=== PATIENT | female | born 1955 | race Caucasian/White ===

== ENCOUNTER 2018-02-27 18:42 | Emergency (ER) | payer BC ==
[2018-02-27] MEDS ORDERED: AMOXICILLIN/POTASSIUM CLAV 875MG/125MG TABLET PO ONE (19:04)
--- NOTE | 2018-02-27 19:04 | Emergency Department Record ---
History of Present Illness - General Chief complaint: Cold Stated complaint: SINUS CONGESTION, Time Seen by Provider: 02/27/18 18:58 Source: Patient Mode of Arrival: Ambulatory Limitations: No limitations - History of Present Illness Initial comments: The patient is here due to sinus congestion, green discharge and facial pain for 3 days. She denies any fever, GOMEZ, or cough but did recently have dental surgery so she is concerned about an infection. MD complaint: Other Onset/Timin -: Days(s) Improves with: None Worsens with: None Associated Symptoms: Rhinorrhea - Related Data Home Medications Medication Instructions Recorded Confirmed Last Taken Atorvastatin Calcium [Lipitor] 20 mg PO DAILY 02/27/18 02/27/18 02/27/18 Cholestyramine (with Sugar) 378 gm PO ASDIR 02/27/18 02/27/18 02/27/18 [Questran Powder] Oxybutynin Chloride [Ditropan Xl] 10 mg PO ASDIR 02/27/18 02/27/18 02/27/18 Oxycodone HCl [Roxicodone] 5 mg PO Q4H PRN 02/27/18 02/27/18 02/27/18 Previous Rx's Medication Instructions Recorded Amoxicillin/Potassium Clav 1 tab PO BID #14 tab 02/27/18 [Augmentin 875-125 Tablet] Fluticasone Propionate [Flonase] 2 spray EACH NARES DAILY #1 bottle 02/27/18 Allergies Allergy/AdvReac Type Severity Reaction Status Date / Time No Known Drug Allergies Allergy Verified 02/27/18 18:45 Travel Screening - Travel/Exposure Within Last 30 Days Have you traveled within the last 30 days?: No - Travel/Exposure Within Last Year Have you traveled outside the [place] in the last year?: No - Additonal Travel Details Have you been exposed to anyone with a communicable illness?: No - Travel Symptoms Symptom Screening: None Review of Systems Constitutional: Denies: Chills, Fever Eyes: Denies: Eye discharge ENT: Reports: Congestion, Dental pain Respiratory: Denies: Cough, Dyspnea Past Medical History - SOCIAL HISTORY Smoking Status: Former smoker Alcohol Use: Rare Drug Use: None - RESPIRATORY Hx Respiratory Disorders: No - CARDIOVASCULAR Hx Cardio Disorders: Yes Hx Pacemaker/Defib: Yes Comment:: WPW - NEURO Hx Neuro Disorders: Yes Hx Neuropathy: Yes - GI Hx GI Disorders: Yes Hx Hepatitis/Jaundice: Yes - Hx Genitourinary Disorders: Yes Hx Bladder Problem: Yes Comment:: cyst on left kidney - ENDOCRINE Hx Endocrine Disorders: Yes Hx Diabetes: Yes (NIDDM) - MUSCULOSKELETAL Hx Musculoskeletal Disorders: Yes Hx Arthritis: Yes - PSYCH Hx Psych Problems: No - HEMATOLOGY/ONCOLOGY Hx Hematology/Oncology Disorders: No Family Medical History Any Significant Family History?: Yes Hx Cancer: Mother *Cancer Comment: THYROID Hx Heart Disease: Mother *Heart Comment: CHF Hx HTN: Mother Physical Exam - General General Appearance: Alert, Oriented x3, Cooperative, No acute distress - Head Head exam: Atraumatic, Normocephalic, Normal inspection - Eye Eye exam: Normal appearance, PERRL, EOMI - ENT ENT exam: Normal exam, Mucous membranes moist, Normal external ear exam, Normal orophraynx, TM's normal bilaterally Nasal Exam: Sinus tenderness (mild bilateral maxillary areas. There is no swelling, erythema, or edema appreciated.). negative: Normal inspection, Discharge Throat exam: Normal inspection. negative: Tonsillar erythema, Tonsillar exudate - Neck Neck exam: Normal inspection, Full ROM. negative: Tenderness - Respiratory Respiratory exam: Normal lung sounds bilaterally. negative: Respiratory distress - Cardiovascular Cardiovascular Exam: Regular rate, Normal rhythm, Normal heart sounds - GI/Abdominal GI/Abdominal exam: Soft, Normal bowel sounds. negative: Tenderness Course Vital Signs 02/27/18 18:52 Temperature 98.4 F Pulse Rate 73 Respiratory 18 Rate Blood Pressure 108/70 Pulse Ox 95 - Reevaluation(s) Reevaluation #1: I did discuss the need to treat the patient for a bacterial sinus infection due to the recent surgery. She is to contact her surgeons tomorrow for further instructions. 02/27/18 19:07 Disposition Disposition: Discharge Clinical Impression: Sinusitis nasal Qualifiers: Sinusitis location: unspecified location Chronicity: acute Recurrence: not specified as recurrent Qualified Code(s): J01.90 - Acute sinusitis, unspecified Disposition: Home, Self-Care Condition: (2) Stable Instructions: Cold Symptoms (ED) Additional Instructions: Please take the Augmentin as directed and see your family doctor for recheck if not better in 3 days. Please call your surgeon tomorrow also to discuss the issues. Return to the ER for any problems. Prescriptions: Amoxicillin/Potassium Clav [Augmentin 875-125 Tablet] 1 tab PO BID #14 tab Fluticasone Propionate [Flonase] 2 spray EACH NARES DAILY #1 bottle Forms: Patient Portal Access Time of Disposition: 19:04 Quality - Quality Measures Quality Measures: N/A - Blood Pressure Screening View Details: Yes Does Patient Have Any of the Following: No Blood Pressure Classification: Normal BP Reading Systolic Measurement: 108 Diastolic Measurement: 70 Screening for High Blood Pressure: < Normal BP, F/U Not Required > [G8783]
== END 2018-02-27 19:13 | disposition home or self-care (01) ==
LOC: ER 18:42
DX: J01.90 Acute sinusitis, unspecified (principal); E11.9 Type 2 diabetes mellitus without complications; F17.210 Nicotine dependence, cigarettes, uncomplicated
CPT/HCPCS: 99282

== ENCOUNTER 2018-04-15 14:10 | Emergency (ER) | payer BC ==
[2018-04-15] MEDS ORDERED: 0.9 % SODIUM CHLORIDE 1,000 ML BAG IV ONE (14:34)
[2018-04-15] MEDS ORDERED: ONDANSETRON HCL IV 4 MG/2 ML VIAL IV ONE (14:34)
--- NOTE | 2018-04-15 14:34 | Emergency Department Record ---
History of Present Illness - General Chief Complaint: Back Pain/Injury Stated Complaint: NAUSEA,DIZZY,FAINT,kIDNEY PAIN Time Seen by Provider: 04/15/18 14:31 Source: Patient - History of Present Illness Initial Comments: The patient has been having foul smelling urine since last evening along with lower abdominal pain and left back pain. She has been drinking less than her usual. She has also had nausea without vomiting with it. She denies fevers, chills, cough, chest pain or shortness of breath. She has a history of bladder infections in the past. Onset/Timin -: Hour(s) Similar Symptoms Previously: No Place: Home Radiation: Other Severity scale (1-10): 7 Quality: Aching Consistency: Intermittent Improves With: None Worsens With: None Context: Unknown Associated Symptoms: Abdominal pain, Difficulty urinating, Loss of appetite, Nausea/vomiting, Other - Related Data Previous Rx's Medication Instructions Recorded Sulfamethoxazole/Trimethoprim 1 each PO BID #20 tablet 04/15/18 [Bactrim Ds Tablet] Allergies Allergy/AdvReac Type Severity Reaction Status Date / Time No Known Drug Allergies Allergy Verified 02/27/18 18:45 Travel Screening - Travel/Exposure Within Last 30 Days Have you traveled within the last 30 days?: No - Travel/Exposure Within Last Year Have you traveled outside the [place] in the last year?: No - Additonal Travel Details Have you been exposed to anyone with a communicable illness?: No - Travel Symptoms Symptom Screening: None Review of Systems Reviewed: No additional complaints except as noted below Constitutional: Reports: As per HPI. Denies: Chills, Fever, Malaise, Night sweats, Weakness, Weight change Eyes: Reports: As per HPI. Denies: Eye discharge, Eye pain, Photophobia, Vision change ENT: Reports: As per HPI. Denies: Congestion, Dental pain, Ear pain, Epistaxis , Hearing loss, Throat pain Respiratory: Reports: As per HPI. Denies: Cough, Dyspnea, Hemoptysis, Stridor, Wheezes Cardiovascular: Reports: As per HPI. Denies: Arrhythmia, Chest pain, Dyspnea on exertion, Edema, Murmurs, Orthopnea, Palpitations, Paroxysmal nocturnal dyspnea, Rheumatic Fever, Syncope Endocrine: Reports: As per HPI. Denies: Fatigue, Heat or cold intolerance, Polydipsia, Polyuria Gastrointestinal: Reports: As per HPI. Denies: Abdominal pain, Constipation, Diarrhea, Hematemesis, Hematochezia, Melena, Nausea, Vomiting Genitourinary: Reports: As per HPI. Denies: Abnormal menses, Discharge, Dyspareunia, Dysuria, Frequency, Hematuria, Incontinence, Retention, Urgency Musculoskeletal: Reports: As per HPI. Denies: Arthralgia, Back pain, Gout, Joint swelling, Myalgia, Neck pain Skin: Reports: As per HPI. Denies: Bruising, Change in color, Change in hair/ nails, Lesions, Pruritus, Rash Neurological: Reports: As per HPI. Denies: Abnormal gait, Confusion, Headache, Numbness, Paresthesias, Seizure, Tingling, Tremors, Vertigo, Weakness Psychiatric: Reports: As per HPI. Denies: Anxiety, Auditory hallucinations, Depression, Homicidal thoughts, Suicidal thoughts, Visual hallucinations Hematological/Lymphatic: Reports: As per HPI. Denies: Anemia, Blood Clots, Easy bleeding, Easy bruising, Swollen glands Past Medical History - SOCIAL HISTORY Smoking Status: Former smoker Alcohol Use: Rare Drug Use: None - RESPIRATORY Hx Respiratory Disorders: No - CARDIOVASCULAR Hx Cardio Disorders: Yes Hx Abnormal EKG: Yes Hx Pacemaker/Defib: Yes Comment:: WPW - NEURO Hx Neuro Disorders: Yes Hx Neuropathy: Yes - GI Hx GI Disorders: Yes Hx Hepatitis/Jaundice: Yes (autoimmune) - Hx Genitourinary Disorders: Yes Hx Bladder Problem: Yes Comment:: cyst on left kidney - ENDOCRINE Hx Endocrine Disorders: Yes Hx Diabetes: Yes (NIDDM) - MUSCULOSKELETAL Hx Musculoskeletal Disorders: Yes Hx Arthritis: Yes - PSYCH Hx Psych Problems: No - HEMATOLOGY/ONCOLOGY Hx Hematology/Oncology Disorders: No Family Medical History Any Significant Family History?: No Hx Cancer: Mother *Cancer Comment: THYROID Hx Heart Disease: Mother *Heart Comment: CHF Hx HTN: Mother Physical Exam - General General Appearance: Alert, Oriented x3, Cooperative, No acute distress - Head Head exam: Normal inspection - Eye Eye exam: Normal appearance, PERRL Pupils: Normal accommodation - ENT ENT exam: Normal exam, Mucous membranes moist, Normal external ear exam, Normal orophraynx, TM's normal bilaterally Ear exam: Normal external inspection. negative: External canal tenderness Nasal Exam: Normal inspection. negative: Discharge, Sinus tenderness Mouth exam: Normal external inspection, Tongue normal Teeth exam: Normal inspection. negative: Dental caries Throat exam: Normal inspection. negative: Tonsillar erythema, Tonsillar exudate - Neck Neck exam: Normal inspection, Full ROM. negative: Tenderness - Respiratory Respiratory exam: Normal lung sounds bilaterally. negative: Respiratory distress - Cardiovascular Cardiovascular Exam: Regular rate, Normal rhythm, Normal heart sounds - GI/Abdominal GI/Abdominal exam: Soft, Normal bowel sounds, Tenderness (mildly tender lowermost abdomen near bladder region) - Rectal Rectal exam: Deferred - exam: Deferred - Extremities Extremities exam: Normal inspection, Full ROM, Normal capillary refill. negative: Tenderness - Back Back exam: Reports: Normal inspection, Full ROM. Denies: CVA tenderness (R), CVA tenderness (L), Muscle spasm, Rash noted, Tenderness - Neurological Neurological exam: Alert, CN II-XII intact, Normal gait, Oriented X3, Reflexes normal. negative: Motor sensory deficit - Psychiatric Psychiatric exam: Normal affect, Normal mood - Skin Skin exam: Dry, Intact, Normal color, Warm Course Vital Signs 04/15/18 14:14 Temperature 98.4 F Pulse Rate 94 H Respiratory 16 Rate Blood Pressure 139/92 Pulse Ox 98 - Reevaluation(s) Reevaluation #1: Patient is feeling better after fluids and rest. She was given instructions for her UTI, all questions answered. Ready for DC. 04/15/18 16:02 Medical Decision Making - Management Options MDM Management: No Additional Work-up Planned - Data Complexity MDM Data: Labs Ordered and/or Reviewed (UA with 4+ bacteria, >50 WBC's, lg LE, LFT's elevated bili 1.1; AST51; ALT 71( all of which have been higher on prior studies).) - Lab Data Result diagrams: 04/15/18 14:25 04/15/18 14:25 Disposition Disposition: Discharge Clinical Impression: Elevated LFTs UTI (urinary tract infection) Qualifiers: Urinary tract infection type: acute cystitis Hematuria presence: with hematuria Qualified Code(s): N30.01 - Acute cystitis with hematuria Disposition: Home, Self-Care Condition: (1) Good Additional Instructions: Take your antibiotics Bactrim twice daily until gone. Repeat urine with Dr. Mandujano PCP after you have finished your antibiotics. Increase fluid intake. Your liver anzymes were elevated this visit. Have PCP follow them. Prescriptions: Sulfamethoxazole/Trimethoprim [Bactrim Ds Tablet] 1 each PO BID #20 tablet Forms: Patient Portal Access Quality - Quality Measures Quality Measures: N/A - Blood Pressure Screening Does Patient Have Any of the Following: No Blood Pressure Classification: Hypertensive Reading Systolic Measurement: 139 Diastolic Measurement: 92 Screening for High Blood Pressure: Patient Exclusion, Hx of HTN [G9744]
[2018-04-15 15:03] LABS: BASO % 0.3 % (0-6); EOS % 0.8 % (0-6); GRAN % 78.6 % (47-80); HEMATOCRIT 47.4 % (35.0-47.0); HEMOGLOBIN 15.9 gm/dl (11.6-16.0); LYMPH % 15.8 % (16-45); MEAN CELL VOLUME 92.2 fl (81-97); MEAN CORPUSCULAR HEMOGLOBIN 30.9 pg (27-33); MEAN CORPUSCULAR HGB CONC 33.5 g/dl (32-36); MONO % 4.5 % (0-9); PLATELET COUNT 173 K/uL (130-400); RED BLOOD COUNT 5.14 M/uL (3.80-5.40); RED CELL DISTRIBUTION WIDTH 12.6 % (11.5-14.5); WHITE BLOOD COUNT W/O DIFF 11.9 K/uL (4.2-12.2)
[2018-04-15 15:11] LABS: BLOOD UREA NITROGEN 16 mg/dL (8-23); CREATININE 0.7 mg/dL (0.5-0.9); EST GLOMERULAR FILTRATION RATE > 60 mL/min
[2018-04-15 15:12] LABS: TOTAL PROTEIN 8.6 g/dL (6.6-8.7)
[2018-04-15 15:14] LABS: GLUCOSE,RANDOM 128 mg/dL (74-109)
[2018-04-15 15:17] LABS: ALB/GLOB RATIO 1.3 (1.1-1.8); ALBUMIN 4.8 g/dL (4.0-5.0); ALKALINE PHOSPHATASE 90 U/L (35-104); ALT/SGPT 79 U/L (<33); AST/SGOT 51 U/L (10.0-35.0); LIPASE 31 U/L (13-60)
[2018-04-15 15:22] LABS: URINE APPEARANCE SL CLOUDY; URINE BILIRUBIN NEGATIVE (NEGATIVE); URINE BLOOD SMALL (NEGATIVE); URINE COLOR YELLOW; URINE GLUCOSE (UA) NEGATIVE (NEGATIVE); URINE KETONE TRACE (NEGATIVE); URINE LEUKOCYTE ESTERASE LARGE (NEGATIVE); URINE NITRITE POSITIVE (NEGATIVE); URINE UROBILINOGEN 0.2 E.U./dL (0.20 - 1.00)
[2018-04-15 15:30] LABS: URINE BACTERIA 4+; URINE EPITHELIAL CELLS 0 - 2 (FEW); URINE WBC >50 (0-2/hpf)
[2018-04-15] MEDS ORDERED: CEFTRIAXONE SODIUM 1 GM in 0.9 % SODIUM CHLORIDE 100ML 100 ML IVPB ONE (15:44)
== END 2018-04-15 16:22 | disposition home or self-care (01) ==
LOC: ER 14:10
DX: N30.01 Acute cystitis with hematuria (principal); I45.6 Pre-excitation syndrome; Z95.0 Presence of cardiac pacemaker; E11.9 Type 2 diabetes mellitus without complications; Z79.84 Long term (current) use of oral hypoglycemic drugs; Z87.891 Personal history of nicotine dependence
CPT/HCPCS: 99284 ×2; 96365; 96375; 83690; 85025; 80053; 81001; J2405; J7030

== ENCOUNTER 2018-11-08 23:00 | Inpatient (IN) | payer BC ==
[2018-11-08] MEDS ORDERED: ACETAMINOPHEN 500 MG TABLET PO ONE (23:23)
--- NOTE | 2018-11-08 23:28 | Emergency Department Record ---
History of Present Illness - General Stated Complaint: URINARY ISSUES- FEVER Time Seen by Provider: 11/08/18 23:04 Source: Patient Mode of Arrival: Ambulatory Limitations: No limitations - History of Present Illness Initial Comments: 63 yo female presents to ED for evaluation of fever, flank pain, and dysuria symptoms that began last night. Patient is post-op from pacemaker 8 days ago at [facility] with Dr. Marcano, denies cough or erythema/drainage from the wound site. Patient does report mild suprapubic abdominal pain symptoms, denies nausea/ vomiting symptoms. MD Complaint: Malaise Onset/Timin -: Days(s) Maximum Temperature: 102 F Temperature Source: Oral Context: Recent procedure Associated Symptoms: Chills, Dysuria - Related Data Previous Rx's Medication Instructions Recorded Sulfamethoxazole/Trimethoprim 1 each PO BID #20 tablet 04/15/18 [Bactrim Ds Tablet] Allergies Allergy/AdvReac Type Severity Reaction Status Date / Time No Known Drug Allergies Allergy Verified 02/27/18 18:45 Review of Systems Constitutional: Reports: Chills, Fever. Denies: Malaise, Night sweats Eyes: Denies: Eye discharge, Eye pain ENT: Denies: Congestion, Ear pain, Epistaxis Respiratory: Denies: Cough, Dyspnea Cardiovascular: Denies: Chest pain, Dyspnea on exertion Endocrine: Denies: Fatigue Gastrointestinal: Reports: Abdominal pain, Nausea. Denies: Vomiting Genitourinary: Reports: Dysuria. Denies: Incontinence, Retention Musculoskeletal: Reports: Back pain. Denies: Arthralgia, Gout, Joint swelling Skin: Denies: Bruising, Change in color Neurological: Denies: Abnormal gait, Confusion, Headache, Seizure Psychiatric: Denies: Anxiety Hematological/Lymphatic: Denies: Anemia, Blood Clots Past Medical History - SOCIAL HISTORY Smoking Status: Former smoker Drug Use: None - RESPIRATORY Hx Respiratory Disorders: No - CARDIOVASCULAR Hx Cardio Disorders: Yes Hx Abnormal EKG: Yes Hx Pacemaker/Defib: Yes Comment:: WPW - NEURO Hx Neuro Disorders: Yes Hx Neuropathy: Yes - GI Hx GI Disorders: Yes Hx Hepatitis/Jaundice: Yes (autoimmune) - Hx Genitourinary Disorders: Yes Hx Bladder Problem: Yes Comment:: cyst on left kidney - ENDOCRINE Hx Endocrine Disorders: Yes Hx Diabetes: Yes (NIDDM) - MUSCULOSKELETAL Hx Musculoskeletal Disorders: Yes Hx Arthritis: Yes - PSYCH Hx Psych Problems: No - HEMATOLOGY/ONCOLOGY Hx Hematology/Oncology Disorders: No Family Medical History Hx Cancer: Mother *Cancer Comment: THYROID Hx Heart Disease: Mother *Heart Comment: CHF Hx HTN: Mother Physical Exam - General General Appearance: Alert, Oriented x3, Cooperative, Mild distress Limitations: No limitations - Head Head exam: Atraumatic, Normocephalic, Normal inspection Head exam detail: negative: Abrasion, Contusion, Barcenas's sign, General tenderness, Hematoma, Laceration - Eye Eye exam: Normal appearance. negative: Conjunctival injection, Periorbital swelling, Periorbital tenderness, Scleral icterus - ENT Ear exam: negative: Auricular hematoma, Auricular trauma Nasal Exam: negative: Active bleeding, Discharge, Dried blood, Foreign body Mouth exam: negative: Drooling, Laceration, Muffled voice, Tongue elevation - Neck Neck exam: Normal inspection. negative: Meningismus, Tenderness - Respiratory Respiratory exam: Normal lung sounds bilaterally, Other (No erythema/draiange from the left upper chest wound, mild ecchysmosis present c/w recent pacemaker placement.). negative: Rales, Respiratory distress, Rhonchi, Stridor - Cardiovascular Cardiovascular Exam: Regular rate, Normal rhythm, Normal heart sounds - GI/Abdominal GI/Abdominal exam: Soft, Tenderness (Mild TTP supra-pubic region, no rebound, guarding, or peritoneal signs on examination). negative: Rebound, Rigid - Rectal Rectal exam: Deferred - exam: Deferred - Extremities Extremities exam: Normal inspection. negative: Pedal edema, Tenderness - Back Back exam: Denies: CVA tenderness (R), CVA tenderness (L) - Neurological Neurological exam: Alert, Normal gait, Oriented X3 - Psychiatric Psychiatric exam: Normal affect, Normal mood - Skin Skin exam: Normal color. negative: Abrasion Type of lesion: negative: abrasion Course - Reevaluation(s) Reevaluation #1: 11/08/18 23:52 Laboratory studies reviewed: WBC 9.1 with 81% Neutrophils CO2 16 AG 17 BUN 24/Creatinine 1.0, GFR 59 Lactic Acid 2.4 Reevaluation #2: 11/09/18 00:07 CXR: Pacemaker No acute infiltrate Urine pending at this time. Reevaluation #3: 11/09/18 00:45 UA obtained: 3-6 RBCs 16-20 WBCs 0-2 Epis 1+ Bacteria Patient was updated on all results, 2nd Liter NS bolus initiated. Rocephin ordered to infuse as well. Will admit for further evaluation, IV antibiotics, IVFs, and lactic acid trending. Patient agrees with the plan of care as discussed. Medical Decision Making - Lab Data Result diagrams: 11/08/18 23:20 11/08/18 23:20 Disposition Disposition: Admit Clinical Impression: Pyelonephritis, Postsurgical cardiac pacemaker in situ Sepsis Qualifiers: Sepsis type: sepsis due to unspecified organism Qualified Code(s): A41.9 - Sepsis, unspecified organism Disposition: Still a Patient at [facility] Decision to Admit: Admit from ER Decision to Admit Date: 11/09/18 Decision to Admit Time: 00:48 Condition: (2) Stable Time of Disposition: 00:48 Quality - Quality Measures Quality Measures: N/A - Blood Pressure Screening Does Patient Have Any of the Following: No Blood Pressure Classification: Pre-Hypertensive BP Reading Systolic Measurement: 129 Diastolic Measurement: 75 Screening for High Blood Pressure: < Pre-Hypertensive BP, F/U Documented > [ G8950] Pre-Hypertensive Follow-up Interventions: Referral to alternative/primary care provider.
[2018-11-08 23:31] LABS: HEMATOCRIT 40.2 % (35.0-47.0); HEMOGLOBIN 13.6 gm/dl (11.6-16.0); MEAN CELL VOLUME 91.6 fl (81-97); MEAN CORPUSCULAR HGB CONC 33.8 g/dl (32-36); MEAN PLATELET VOLUME 11.9 fl (7.4-10.4); PLATELET COUNT 107 K/uL (130-400); RED BLOOD COUNT 4.39 M/uL (3.80-5.40); WHITE BLOOD COUNT W/O DIFF 9.1 K/uL (4.2-12.2)
[2018-11-08 23:43] LABS: BILIRUBIN,TOTAL 0.9 mg/dL (0.2-1.0)
[2018-11-08 23:44] LABS: TOTAL PROTEIN 7.4 g/dL (6.6-8.7)
[2018-11-08] MEDS: 0.9 % SODIUM CHLORIDE 1000ML 1,000 ML IV SCH (23:45)
[2018-11-08 23:49] LABS: ALB/GLOB RATIO 1.2 (1.1-1.8)
[2018-11-09 00:37] LABS: URINE APPEARANCE SL CLOUDY; URINE BILIRUBIN NEGATIVE (NEGATIVE); URINE BLOOD SMALL (NEGATIVE); URINE COLOR YELLOW; URINE GLUCOSE (UA) NEGATIVE (NEGATIVE); URINE KETONE NEGATIVE (NEGATIVE); URINE LEUKOCYTE ESTERASE MODERATE (NEGATIVE); URINE NITRITE NEGATIVE (NEGATIVE); URINE PROTEIN TRACE (NEGATIVE); URINE UROBILINOGEN 0.2 E.U./dL (0.20 - 1.00)
[2018-11-09] MEDS ORDERED: CEFTRIAXONE 1GM/50ML BAG 1 GM/50 ML BAG IVPB ONE (00:38)
[2018-11-09 00:41] LABS: URINE BACTERIA 1+; URINE EPITHELIAL CELLS 0 - 2 (FEW); URINE WBC 16 - 20 (0-2/hpf)
[2018-11-09] MEDS: 0.9 % SODIUM CHLORIDE 1000ML 1,000 ML IV SCH (00:44)
[2018-11-09] MEDS ORDERED: 0.9 % SODIUM CHLORIDE 1000ML 1,000 ML IV SCH (00:45)
[2018-11-09] MEDS ORDERED: LEVOFLOXACIN 250MG IVPB 250 MG/50 ML BAG IVPB ONE (00:54)
[2018-11-09] MEDS ORDERED: LEVOFLOXACIN 250MG IVPB 250 MG/50 ML BAG IVPB SCH (02:00)
[2018-11-09] MEDS ORDERED: CEFTRIAXONE 1GM/50ML BAG 1 GM/50 ML BAG IVPB SCH (02:00)
[2018-11-09] MEDS: 0.9 % SODIUM CHLORIDE 1000ML 1,000 ML IV PRN ×3 (02:11→18:46)
[2018-11-09 07:20] LABS: BLOOD UREA NITROGEN 21 mg/dL (8-23); CREATININE 0.9 mg/dL (0.5-0.9); EST GLOMERULAR FILTRATION RATE > 60 mL/min; GLUCOSE,RANDOM 132 mg/dL (74-109)
--- NOTE | 2018-11-09 09:25 | RADIOLOGY REPORT ---
EXAM: CHEST, TWO VIEWS HISTORY: FEVER, RECENT PACEMAKER INSERTION. TECHNIQUE: Two views of the chest were obtained. Comparison: None. FINDINGS: The cardiac silhouette is within normal size limits. Implanted left sided cardiac device is present. The pulmonary vasculature is not significantly dilated. No focal pulmonary consolidation. No pleural effusion or pneumothorax. IMPRESSION: NO ACUTE LUNG FINDINGS. JOB NUMBER: [id number] MTDD
[2018-11-09] MEDS: ACETAMINOPHEN 500 MG TABLET PO PRN ×2 (09:50→20:01)
[2018-11-09] MEDS ORDERED: FLUTICASONE PROPIONATE 50MCG NASAL 16 GM BTL PRN (10:28)
[2018-11-09] MEDS: GABAPENTIN 300 MG CAPSULE PO SCH ×3 (10:58→21:47)
[2018-11-09] MEDS: METFORMIN 500 MG TABLET PO SCH (10:58)
[2018-11-09] MEDS: DOCUSATE SODIUM 100 MG CAPSULE PO SCH ×2 (10:59→21:46)
[2018-11-09] MEDS: CITALOPRAM 20 MG TABLET PO SCH (10:59)
[2018-11-09] MEDS: CARVEDILOL 3.125 MG TABLET PO SCH ×2 (10:59→21:48)
[2018-11-09] MEDS: RAMIPRIL 2.5 MG CAPSULE PO SCH (10:59)
[2018-11-09] MEDS: OXYBUTYNIN CHLORIDE 5MG TABLET PO SCH ×3 (10:59→21:47)
[2018-11-09] MEDS: MELOXICAM 7.5 MG TABLET PO SCH (10:59)
--- NOTE | 2018-11-09 11:28 | History & Physical ---
History of Present Illness - Date of Service Date of Service for History & Physical: 11/11/18 - History of Present Illness Admitting Diagnosis: Pyelpnephritis. Sepsis. Post-op pacemaker History of Present Illness: 63yo F c/o 1+ week of foul smelling urine, 3-4 days of lower abd and lower back pain. Pt reports freq UTI but usually has burning with urination but that did not happen this time. Pt recently had 3rd PPM placed by 8 days ago by [facility]. Service confirms that pt did NOT have benoit placed for procedure. PMG HTN, heart block (WPW), former smoker, DM, and hyperlipidemia. 11/08/18 Pt 102F, 104, 129/75, RR 24, 97%RA WBC 9.1, Hgb 13.6, Hct 40.2, Plt 107 Na 136, K 3.9, Anion gap 13, BUN 21, Cr 0.9, GFR >60, glucose 132 lactic acid 2.4, repeat 1.3 after 2L. UA positive mod leuk CXR no acute process Given 2 L NS bolus and levaquin 250mg IVPB, and [place]pe[place] 1gm Admit for urosepsis 11/09/18 Pt resting comfortably in bed, no acute distress. Reports freq urination with less abd pain but still no burning. Pt VSS, a&ox4, moving all extremities, warm and dry. Lungs CTA, BS x4, lower abd TTP. Heart sound RR, pacemacker incision left upper chest HEEL BUFFER. Incision is well approximated, no erythema or warmth noted. No drainage noted. Pt continues to lave no overhead left arm movement. POC repeat labs, continue fluids, IV abx and diet as tolerated. PCP [facility] Travel Screening - Travel/Exposure Within Last 30 Days Have you traveled within the last 30 days?: No - Travel/Exposure Within Last Year Have you traveled outside the [place] in the last year?: No - Additonal Travel Details Have you been exposed to anyone with a communicable illness?: No - Travel Symptoms Symptom Screening: Fever (Subjective), Chills Review of Systems Constitutional: Reports: Chills, Fever. Denies: Malaise, Night sweats Eyes: Denies: Eye discharge, Eye pain ENT: Denies: Congestion, Ear pain, Epistaxis Respiratory: Denies: Cough, Dyspnea Cardiovascular: Denies: Chest pain, Dyspnea on exertion Endocrine: Denies: Fatigue Gastrointestinal: Reports: Abdominal pain, Nausea. Denies: Vomiting Genitourinary: Reports: Dysuria. Denies: Incontinence, Retention Musculoskeletal: Reports: Back pain. Denies: Arthralgia, Gout, Joint swelling Skin: Denies: Bruising, Change in color Neurological: Denies: Abnormal gait, Confusion, Headache, Seizure Psychiatric: Denies: Anxiety Hematological/Lymphatic: Denies: Anemia, Blood Clots Past Medical History - SOCIAL HISTORY Smoking Status: Former smoker Alcohol Use: Rare Drug Use: None - RESPIRATORY Hx Respiratory Disorders: No - CARDIOVASCULAR Hx Cardio Disorders: Yes Hx Abnormal EKG: Yes Hx Pacemaker/Defib: Yes Comment:: WPW - NEURO Hx Neuro Disorders: Yes Hx Neuropathy: Yes - GI Hx GI Disorders: Yes Hx Hepatitis/Jaundice: Yes (autoimmune) - Hx Genitourinary Disorders: Yes Hx Bladder Problem: Yes Comment:: cyst on left kidney - ENDOCRINE Hx Endocrine Disorders: Yes Hx Diabetes: Yes (NIDDM) - MUSCULOSKELETAL Hx Musculoskeletal Disorders: Yes Hx Arthritis: Yes - PSYCH Hx Psych Problems: No - HEMATOLOGY/ONCOLOGY Hx Hematology/Oncology Disorders: No Family Medical History Any Significant Family History?: Yes Hx Cancer: Mother *Cancer Comment: THYROID Hx Heart Disease: Mother *Heart Comment: CHF Hx HTN: Mother H&P Meds/Allergies - Allergies Allergies: Allergies Allergy/AdvReac Type Severity Reaction Status Date / Time No Known Drug Allergies Allergy Verified 02/27/18 18:45 - Home Medications Home Medications Medication Instructions Recorded Confirmed Last Taken Aspirin [Aspir-Low] 1 tab PO DAILY 11/09/18 11/09/18 11/09/18 Carvedilol [Coreg] 6.25 mg PO BID 11/09/18 11/09/18 11/09/18 Citalopram Hydrobromide 20 mg PO DAILY 11/09/18 11/09/18 11/09/18 [Citalopram HBr] Docusate Sodium [Dok] 100 mg PO DAILY 11/09/18 11/09/18 11/09/18 Fluticasone Furoate [Arnuity 50 mcg IH ASDIR PRN 11/09/18 11/09/18 Unknown Ellipta] Gabapentin 300 mg PO TID 11/09/18 11/09/18 11/09/18 Metformin HCl [Metformin HCl ER] 500 mg PO DAILY 11/09/18 11/09/18 11/09/18 Omeprazole 20 mg PO DAILY 11/09/18 11/09/18 11/09/18 - Active Medications Active Medications: Current Medications Acetaminophen (Tylenol 500mg Tab) 1,000 mg PO Q6H PRN PRN Reason: PAIN - MILD(1-4)/FEVER Last Admin: 11/09/18 09:50 Dose: 1,000 mg Aspirin (Ecotrin (Ec)) 81 mg PO QHS [facility] Atorvastatin Calcium (Lipitor) 20 mg PO QHS [facility] Carvedilol (Coreg) 6.25 mg PO BID [facility] Last Admin: 11/09/18 10:59 Dose: 6.25 mg Cholestyramine Resin (Prevalite) 1 pkt PO BIDWM [facility] Citalopram Hydrobromide (Celexa) 20 mg PO DAILY [facility] Last Admin: 11/09/18 10:59 Dose: 20 mg Docusate Sodium (Colace) 100 mg PO BID [facility] Last Admin: 11/09/18 10:59 Dose: 100 mg Fluticasone Propionate (Flonase) 1 spray NA BID PRN PRN Reason: ALLERGIES Gabapentin (Neurontin) 300 mg PO TID [facility] Last Admin: 11/09/18 10:58 Dose: 300 mg Sodium Chloride () 1,000 mls @ 125 mls/hr IV .Q8H PRN PRN Reason: LARGE VOLUME IV Last Admin: 11/09/18 10:02 Dose: 125 mls/hr Levofloxacin (Levaquin 250mg Ivpb) 250 mg in 50 mls @ 50 mls/hr IVPB Q24H [facility] Stop: 11/15/18 02:01 CEFTRIAXONE 1GM/50ML BAG (Ceftriaxone 1 Gm-D5w Bag) 1 gm in 50 mls @ 100 mls/ hr IVPB Q12H [facility] Meloxicam (Mobic) 15 mg PO DAILY [facility] Last Admin: 11/09/18 10:59 Dose: 15 mg Metformin HCl (Glucophage Ir) 500 mg PO DAILY [facility] Last Admin: 11/09/18 10:58 Dose: 500 mg Oxybutynin Chloride (Ditropan) 5 mg PO TID [facility] Last Admin: 11/09/18 10:59 Dose: 5 mg Ramipril (Altace) 5 mg PO DAILY [facility] Last Admin: 11/09/18 10:59 Dose: 5 mg Physical Exam - Vital Signs Vital Signs: Vital Signs - Last 24 Hrs Temp Pulse Pulse Resp BP BP BP 11/09/18 08:00 98.1 F 82 16 113/58 11/09/18 04:00 97.9 F 83 16 104/52 11/09/18 02:45 98 H 16 11/09/18 02:00 98.1 F 98 H 16 90/56 11/09/18 01:57 91 H 91/61 11/09/18 01:30 92 H 94/62 11/09/18 01:15 93 H 98/63 11/09/18 01:07 97 H 102/64 11/09/18 01:00 99.1 F 96 H 79/54 11/09/18 00:30 99.1 F 96 H 16 92/64 11/08/18 23:24 102.0 F H 104 H 24 129/75 Pulse Ox 11/09/18 08:00 97 11/09/18 04:00 97 11/09/18 02:45 11/09/18 02:00 95 11/09/18 01:57 11/09/18 01:30 11/09/18 01:15 11/09/18 01:07 93 L 11/09/18 01:00 11/09/18 00:30 92 L 11/08/18 23:24 97 - General General Appearance: Alert, Oriented x3, Cooperative, No acute distress Limitations: No limitations - Head Head exam: Atraumatic, Normocephalic, Normal inspection Head exam detail: negative: Abrasion, Contusion, Barcenas's sign, General tenderness, Hematoma, Laceration - Eye Eye exam: Normal appearance. negative: Conjunctival injection, Periorbital swelling, Periorbital tenderness, Scleral icterus - ENT Ear exam: negative: Auricular hematoma, Auricular trauma Nasal Exam: negative: Active bleeding, Discharge, Dried blood, Foreign body Mouth exam: negative: Drooling, Laceration, Muffled voice, Tongue elevation - Neck Neck exam: Normal inspection. negative: Meningismus, Tenderness - Respiratory Respiratory exam: Normal lung sounds bilaterally. negative: Rales, Respiratory distress, Rhonchi, Stridor - Cardiovascular Cardiovascular Exam: Regular rate, Normal rhythm, Normal heart sounds Peripheral Pulses: 2+: Radial (R), Radial (L), Dorsalis Pedis (R), Dorsalis Pedis (L) - GI/Abdominal GI/Abdominal exam: Soft, Tenderness (Mild TTP supra-pubic region, no rebound, guarding, or peritoneal signs on examination). negative: Rebound, Rigid - Rectal Rectal exam: Deferred - exam: Deferred - Extremities Extremities exam: Normal inspection. negative: Pedal edema, Tenderness - Back Back exam: Denies: CVA tenderness (R), CVA tenderness (L) - Neurological Neurological exam: Alert, Normal gait, Oriented X3 - Psychiatric Psychiatric exam: Normal affect, Normal mood - Skin Skin exam: Normal color. negative: Abrasion Type of lesion: negative: abrasion Results - Labs Result Diagrams: 11/11/18 06:14 11/11/18 06:14 Labs Last 24 Hours: Laboratory Results - last 24 hr 11/08/18 11/08/18 11/08/18 23:20 23:20 23:22 WBC 9.1 RBC 4.39 Hgb 13.6 Hct 40.2 MCV 91.6 MCH 31.0 MCHC 33.8 RDW 13.0 Plt Count 107 L MPV 11.9 H Neutrophils % 81.0 H Band Neutrophils % 1.0 Eosinophils % Not Reportable Basophils % Not Reportable Lymphocytes 12.0 L Monocytes 6.0 Basophils 0.0 Eosinophil Count 0.0 Sodium 134 L Potassium 4.1 Chloride 101 Carbon Dioxide 16.0 L Anion Gap 17.0 H BUN 24 H Creatinine 1.0 H Estimated GFR 59 Random Glucose 144 H Lactic Acid Calcium 9.5 Total Bilirubin 0.90 AST 28 ALT 35 H Alkaline Phosphatase 87 Total Protein 7.4 Albumin 4.0 Globulin 3.4 Albumin/Globulin Ratio 1.2 Urine Color Cancelled Urine Appearance Cancelled Urine pH Cancelled Ur Specific [place] Cancelled Urine Protein Cancelled Urine Glucose (UA) Cancelled Urine Clinitest Cancelled Urine Ketones Cancelled Urine Blood Cancelled Urine Nitrite Cancelled Urine Bilirubin Cancelled Urine Ictotest Cancelled Prot Sulfosalicylic Acd Cancelled Urine Urobilinogen Cancelled Ur Leukocyte Esterase Cancelled Urine RBC Urine WBC Ur Epithelial Cells Urine Bacteria 11/08/18 11/09/18 11/09/18 23:45 00:37 02:28 WBC RBC Hgb Hct MCV MCH MCHC RDW Plt Count MPV Neutrophils % Band Neutrophils % Eosinophils % Basophils % Lymphocytes Monocytes Basophils Eosinophil Count Sodium Potassium Chloride Carbon Dioxide Anion Gap BUN Creatinine Estimated GFR Random Glucose Lactic Acid 2.4 H 1.3 Calcium Total Bilirubin AST ALT Alkaline Phosphatase Total Protein Albumin Globulin Albumin/Globulin Ratio Urine Color Yellow Urine Appearance Sl cloudy Urine pH 6.0 Ur Specific [place] 1.010 Urine Protein Trace H Urine Glucose (UA) Negative Urine Clinitest Urine Ketones Negative Urine Blood Small H Urine Nitrite Negative Urine Bilirubin Negative Urine Ictotest Prot Sulfosalicylic Acd Urine Urobilinogen 0.2 Ur Leukocyte Esterase Moderate H Urine RBC 3 - 6 Urine WBC 16 - 20 Ur Epithelial Cells 0 - 2 Urine Bacteria 1+ 11/09/18 06:40 WBC RBC Hgb Hct MCV MCH MCHC RDW Plt Count MPV Neutrophils % Band Neutrophils % Eosinophils % Basophils % Lymphocytes Monocytes Basophils Eosinophil Count Sodium 136 Potassium 3.9 Chloride 106 Carbon Dioxide 17.0 L Anion Gap 13.0 BUN 21 Creatinine 0.9 Estimated GFR > 60 Random Glucose 132 H Lactic Acid Calcium 8.3 L Total Bilirubin AST ALT Alkaline Phosphatase Total Protein Albumin Globulin Albumin/Globulin Ratio Urine Color Urine Appearance Urine pH Ur Specific [place] Urine Protein Urine Glucose (UA) Urine Clinitest Urine Ketones Urine Blood Urine Nitrite Urine Bilirubin Urine Ictotest Prot Sulfosalicylic Acd Urine Urobilinogen Ur Leukocyte Esterase Urine RBC Urine WBC Ur Epithelial Cells Urine Bacteria - Imaging and Cardiology Chest x-ray Status: Report reviewed VTE H&P Assessment - Risk for VTE Risk for VTE: Yes Risk Level: Moderate Risk Assessment Date: 11/11/18 Risk Assessment Time: 09:59 VTE Orders Placed or Will Be Placed: Yes Plan - Inpatient Certification Inpatient Certification: Admit to inpatient care: Based on my medical assessment, after consideration of patient's risk factors (age, co-morbidities and patient presenting symptoms and acuity), I expect that this patient will remain in the hospital greater than or equal to two midnights and that the services needed warrant inpatient care because: Patient Risk Factors: hypotension, renal insufficiency, electrolytes imbalance Estimated length of stay: The patient may reasonably be expected to be discharged or transferred to a hospital within 96 hours after admission to [facility]. Services needed: IV hydration, IV antibiotics, electrolyte mgt, repeat labs, vital sign monitoring Post hospital care (if known): I certify that my determination is in accordance with my understanding of Medicare requirements for reasonable and necessary inpatient services. 11/11/18 09:59 - Detailed Diagnosis and Plan (1) Sepsis Current Visit: Yes Status: Acute Qualifiers: Sepsis type: sepsis due to unspecified organism Qualified Code(s): A41.9 - Sepsis, unspecified organism Base Code: A41.9 - SEPSIS, UNSPECIFIED ORGANISM Comment: 11/09/18 -lactic acid 2.4 but repeat 1.3 after 2 L NS -pt does not req supplemental O2, VSS, a&ox4 -CBC and RFT stable -continue IV ABX and IVF, repeat labs in the am (2) Pyelonephritis Current Visit: Yes Status: Acute Base Code: N12 - TUBULO-INTERSTITIAL NEPHRITIS, NOT SPCF ACUTE OR CHRONIC Comment: 11/09/18 -IV ABX -BUN 21->13 -Cr 0.9->0.7 repeat labs in AM -pt making urine, tolerating PO intake with no difficulty (3) Postsurgical cardiac pacemaker in situ Current Visit: Yes Status: Acute Base Code: Z95.0 - PRESENCE OF CARDIAC PACEMAKER Comment: 11/09/18 -surgical site has no s/s infectin -[facility] contacted with pt current condition -wound HEEL BUFFER, no drainage noted, incision well approximated (4) Full code status Current Visit: Yes Status: Acute Base Code: Z78.9 - OTHER SPECIFIED HEALTH STATUS Comment: 11/09/18 -full code
[2018-11-09] MEDS: CEFTRIAXONE 1GM/50ML BAG 1 GM/50 ML BAG IVPB SCH ×2 (12:52→23:47)
[2018-11-09] MEDS: CHOLESTYRAMINE/ASPARTANE PKT PO SCH (16:43)
[2018-11-09] MEDS: ATORVASTATIN 20 MG TABLET PO SCH (21:47)
[2018-11-09] MEDS: ASPIRIN 81 MG TABEC PO SCH (21:47)
[2018-11-10] MEDS ORDERED: LEVOFLOXACIN 250MG IVPB 250 MG/50 ML BAG IVPB SCH (02:00)
[2018-11-10] MEDS: ACETAMINOPHEN 500 MG TABLET PO PRN ×3 (03:05→17:44)
[2018-11-10] MEDS: 0.9 % SODIUM CHLORIDE 1000ML 1,000 ML IV PRN ×3 (03:58→23:20)
[2018-11-10 07:13] LABS: BASO % 0.2 % (0-6); EOS % 1.9 % (0-6); GRAN % 69.1 % (47-80); HEMATOCRIT 33.5 % (35.0-47.0); HEMOGLOBIN 11.2 gm/dl (11.6-16.0); LYMPH % 15.6 % (16-45); MEAN CELL VOLUME 93.8 fl (81-97); MEAN CORPUSCULAR HGB CONC 33.4 g/dl (32-36); MEAN PLATELET VOLUME 11.9 fl (7.4-10.4); MONO % 13.2 % (0-9); PLATELET COUNT 93 K/uL (130-400); RED BLOOD COUNT 3.57 M/uL (3.80-5.40); RED CELL DISTRIBUTION WIDTH 13.4 % (11.5-14.5); WHITE BLOOD COUNT W/O DIFF 8.6 K/uL (4.2-12.2)
[2018-11-10 07:19] LABS: MEAN CORPUSCULAR HEMOGLOBIN 31.3 pg (27-33)
[2018-11-10 07:23] LABS: BLOOD UREA NITROGEN 13 mg/dL (8-23); CREATININE 0.7 mg/dL (0.5-0.9); EST GLOMERULAR FILTRATION RATE > 60 mL/min
[2018-11-10 07:26] LABS: GLUCOSE,RANDOM 113 mg/dL (74-109)
[2018-11-10] MEDS: CHOLESTYRAMINE/ASPARTANE PKT PO SCH ×2 (09:32→17:44)
[2018-11-10] MEDS: GABAPENTIN 300 MG CAPSULE PO SCH ×3 (10:08→21:53)
[2018-11-10] MEDS: CITALOPRAM 20 MG TABLET PO SCH (10:09)
[2018-11-10] MEDS: DOCUSATE SODIUM 100 MG CAPSULE PO SCH ×2 (10:09→21:53)
[2018-11-10] MEDS: OXYBUTYNIN CHLORIDE 5MG TABLET PO SCH ×3 (10:09→21:53)
[2018-11-10] MEDS: MELOXICAM 7.5 MG TABLET PO SCH (10:09)
[2018-11-10] MEDS: METFORMIN 500 MG TABLET PO SCH (10:09)
[2018-11-10] MEDS: RAMIPRIL 2.5 MG CAPSULE PO SCH (10:09)
[2018-11-10] MEDS: CARVEDILOL 3.125 MG TABLET PO SCH ×2 (10:10→21:54)
[2018-11-10] MEDS: LEVOFLOXACIN/D5W 750 MG/150 ML BAG IVPB SCH (10:16)
[2018-11-10] MEDS: CEFTRIAXONE 1GM/50ML BAG 1 GM/50 ML BAG IVPB SCH ×2 (13:08→23:23)
[2018-11-10] MEDS: POLYETHYLENE GLY 17 GM PACKET PO SCH (14:44)
[2018-11-10] MEDS ORDERED: CALCIUM CARBONATE 500 MG TAB.CHEW PO PRN (21:47)
[2018-11-10] MEDS: ATORVASTATIN 20 MG TABLET PO SCH (21:53)
[2018-11-10] MEDS: ASPIRIN 81 MG TABEC PO SCH (21:53)
[2018-11-11] MEDS: ACETAMINOPHEN 500 MG TABLET PO PRN (05:23)
[2018-11-11 06:51] LABS: HEMATOCRIT 33.6 % (35.0-47.0); MEAN CELL VOLUME 93.6 fl (81-97); MEAN CORPUSCULAR HEMOGLOBIN 30.6 pg (27-33); MEAN CORPUSCULAR HGB CONC 32.7 g/dl (32-36); MEAN PLATELET VOLUME 12.1 fl (7.4-10.4); PLATELET COUNT 103 K/uL (130-400); RED BLOOD COUNT 3.59 M/uL (3.80-5.40); RED CELL DISTRIBUTION WIDTH 13.7 % (11.5-14.5); WHITE BLOOD COUNT W/O DIFF 7.6 K/uL (4.2-12.2)
[2018-11-11 07:01] LABS: BLOOD UREA NITROGEN 10 mg/dL (8-23); CREATININE 0.7 mg/dL (0.5-0.9); EST GLOMERULAR FILTRATION RATE > 60 mL/min; GLUCOSE,RANDOM 99 mg/dL (74-109)
[2018-11-11 07:22] LABS: PLATELET ESTIMATE NORMAL (NORMAL)
[2018-11-11] MEDS: 0.9 % SODIUM CHLORIDE 1000ML 1,000 ML IV PRN (08:16)
[2018-11-11] MEDS: CHOLESTYRAMINE/ASPARTANE PKT PO SCH ×2 (09:01→16:44)
[2018-11-11] MEDS ORDERED: POTASSIUM CHL 20MEQ IN 1L NS 20 MEQ/1,000 ML BAG IV ONE (09:20)
--- NOTE | 2018-11-11 10:11 | Physician Progress Note ---
Subjective - Date Date of Physician Progress Note: 11/10/18 - Subjective Subjective Comment: Pt appears well, at bedside, both updated with POC and new labs results. Pt and have "googled" sepsis and have questions and concerns about the severity of her current condition based on preliminary results of gram neg rods in BC x2 and elevated procalcitonin 6.68. POC for fluids, increased levaquin dosing to 750mg qdand continue Rocephin 1gm q12. Questions answered, pt and deny any further questions at this time. Objective - Vital Signs Vital Signs: Vital Signs - Last 24 Hrs Temp Pulse Pulse Resp BP Pulse Ox 11/11/18 09:00 98.1 F 84 18 128/75 93 L 11/11/18 05:00 100.4 F H 89 22 148/89 95 11/11/18 00:00 99.7 F H 87 20 113/59 95 11/10/18 21:00 99.8 F H 89 20 126/73 95 11/10/18 20:45 80 18 11/10/18 17:15 100.0 F H 80 18 149/91 96 11/10/18 13:44 72 16 96 11/10/18 12:00 73 16 85/44 95 - General General Appearance: Alert, Oriented x3, Cooperative, No acute distress Limitations: No limitations - Head Head exam: Atraumatic, Normocephalic, Normal inspection Head exam detail: negative: Abrasion, Contusion, Barcenas's sign, General tenderness, Hematoma, Laceration - Eye Eye exam: Normal appearance. negative: Conjunctival injection, Periorbital swelling, Periorbital tenderness, Scleral icterus - ENT Ear exam: negative: Auricular hematoma, Auricular trauma Nasal Exam: negative: Active bleeding, Discharge, Dried blood, Foreign body Mouth exam: negative: Drooling, Laceration, Muffled voice, Tongue elevation - Neck Neck exam: Normal inspection. negative: Meningismus, Tenderness - Respiratory Respiratory exam: Normal lung sounds bilaterally. negative: Rales, Respiratory distress, Rhonchi, Stridor - Cardiovascular Cardiovascular Exam: Regular rate, Normal rhythm, Normal heart sounds, Other ( incision left chest, no drainage, minimal bruising, no redness or warmth ) Peripheral Pulses: 2+: Radial (R), Radial (L), Dorsalis Pedis (R), Dorsalis Pedis (L) - GI/Abdominal GI/Abdominal exam: Soft, Tenderness (Mild TTP supra-pubic region, no rebound, guarding, or peritoneal signs on examination). negative: Rebound, Rigid - Rectal Rectal exam: Deferred - exam: Deferred - Extremities Extremities exam: Normal inspection. negative: Pedal edema, Tenderness - Back Back exam: Denies: CVA tenderness (R), CVA tenderness (L) - Neurological Neurological exam: Alert, Normal gait, Oriented X3 - Psychiatric Psychiatric exam: Normal affect, Normal mood - Skin Skin exam: Normal color. negative: Abrasion Type of lesion: negative: abrasion Assessment and Plan - Assessment and Plan (1) Sepsis Current Visit: Yes Status: Acute Qualifiers: Sepsis type: sepsis due to unspecified organism Qualified Code(s): A41.9 - Sepsis, unspecified organism Base Code: A41.9 - SEPSIS, UNSPECIFIED ORGANISM Comment: 11/09/18 -lactic acid 2.4 but repeat 1.3 after 2 L NS -pt does not req supplemental O2, VSS, a&ox4 -CBC and RFT stable -continue IV ABX and IVF, repeat labs in the am 11/10/18 -Procalcitonin 6.68 and preliminary BC results gram neg rods, levaquin increased to 750mg IVPB, continue Rocephin 1gm q12 -Continue IVF -pt and updated on POC to stay a few days r/t sepsis severity -pt appears well, skin PWD, no distress, eating with out difficulty, denies N/V/ D or abd pain (2) Pyelonephritis Current Visit: Yes Status: Acute Base Code: N12 - TUBULO-INTERSTITIAL NEPHRITIS, NOT SPCF ACUTE OR CHRONIC Comment: 11/09/18 -IV ABX -BUN 21->13 -Cr 0.9->0.7 repeat labs in AM -pt making urine, tolerating PO intake with no difficulty 11/10/18 -Levaquin increased to 750mg IVPB qd, continue rocephin 1gm q12 -continue IVF -pt has adequate intake and output, ambulates to restroom with no diffuculty (3) Postsurgical cardiac pacemaker in situ Current Visit: Yes Status: Acute Base Code: Z95.0 - PRESENCE OF CARDIAC PACEMAKER Comment: 11/09/18 -surgical site has no s/s infectin -[facility] contacted with pt current condition -wound MEDICAL FRONT DESK COORDINATOR, no drainage noted, incision well approximated 11/10/18 -surgical site remains same (4) Full code status Current Visit: Yes Status: Acute Base Code: Z78.9 - OTHER SPECIFIED HEALTH STATUS Comment: 11/10/18 -full code Results - Labs Result Diagrams: 11/11/18 06:14 11/11/18 06:14 Labs Last 24 Hours: Laboratory Results - last 24 hr 11/11/18 11/11/18 06:14 06:14 WBC 7.6 RBC 3.59 L Hgb 11.0 L Hct 33.6 L MCV 93.6 MCH 30.6 MCHC 32.7 RDW 13.7 Plt Count 103 L MPV 12.1 H Neutrophils % 57.0 Band Neutrophils % 5.0 Eosinophils % Not Reportable Basophils % Not Reportable Lymphocytes 21.0 Monocytes 12.0 H Platelet Estimate Normal RBC Morphology Normal Eosinophil Count 5.0 Sodium 140 Potassium 3.7 Chloride 108 H Carbon Dioxide 18.0 L Anion Gap 14.0 BUN 10 Creatinine 0.7 Estimated GFR > 60 Random Glucose 99 Calcium 9.1 DVT/PE Assessment - Risk for VTE Risk for VTE: No Risk Level: Moderate Risk Assessment Date: 11/11/18 Risk Assessment Time: 09:59 VTE Orders Placed or Will Be Placed: Yes - Active Medicaitons Current Medications: Current Medications Acetaminophen (Tylenol 500mg Tab) 1,000 mg PO Q6H PRN PRN Reason: PAIN - MILD(1-4)/FEVER Last Admin: 11/11/18 05:23 Dose: 1,000 mg Aspirin (Ecotrin (Ec)) 81 mg PO QHS [facility] Last Admin: 11/10/18 21:53 Dose: 81 mg Atorvastatin Calcium (Lipitor) 20 mg PO QHS [facility] Last Admin: 11/10/18 21:53 Dose: 20 mg Calcium Carbonate/Glycine (Tums) 500 mg PO Q4H PRN PRN Reason: heartburn Last Admin: 11/10/18 21:53 Dose: 500 mg Carvedilol (Coreg) 6.25 mg PO BID [facility] Last Admin: 11/10/18 21:54 Dose: Not Given Cholestyramine Resin (Prevalite) 1 pkt PO BIDWM [facility] Last Admin: 11/11/18 09:01 Dose: 1 pkt Citalopram Hydrobromide (Celexa) 20 mg PO DAILY [facility] Last Admin: 11/10/18 10:09 Dose: 20 mg Docusate Sodium (Colace) 100 mg PO BID [facility] Last Admin: 11/10/18 21:53 Dose: 100 mg Enoxaparin Sodium (Lovenox) 40 mg SQ DAILY [facility] Fluticasone Propionate (Flonase) 1 spray NA BID PRN PRN Reason: ALLERGIES Gabapentin (Neurontin) 300 mg PO TID [facility] Last Admin: 11/10/18 21:53 Dose: 300 mg CEFTRIAXONE 1GM/50ML BAG (Ceftriaxone 1 Gm-D5w Bag) 1 gm in 50 mls @ 100 mls/ hr IVPB Q12H [facility] Last Infusion: 11/11/18 00:04 Dose: Infused Levofloxacin/Dextrose (Levaquin 750mg Ivpb) 750 mg in 150 mls @ 125 mls/hr IVPB Q24H [facility] Stop: 11/15/18 10:01 Last Infusion: 11/10/18 12:21 Dose: Infused Potassium Chloride/Sodium Chloride ( Potassium Chl 20meq/) 20 meq in 1,000 mls @ 100 mls/hr IV NOW ONE Stop: 11/11/18 19:19 Meloxicam (Mobic) 15 mg PO DAILY [facility] Last Admin: 11/10/18 10:09 Dose: 15 mg Metformin HCl (Glucophage Ir) 500 mg PO DAILY [facility] Last Admin: 11/10/18 10:09 Dose: 500 mg Oxybutynin Chloride (Ditropan) 5 mg PO TID [facility] Last Admin: 11/10/18 21:53 Dose: 5 mg Polyethylene Glycol (Miralax) 17 gm PO DAILY [facility] Last Admin: 11/10/18 14:44 Dose: 17 gm Ramipril (Altace) 5 mg PO DAILY [facility] Last Admin: 11/10/18 10:09 Dose: 5 mg AMI Plan - Labs Result Diagrams: 11/11/18 06:14 11/11/18 06:14
--- NOTE | 2018-11-11 10:22 | Physician Progress Note ---
Subjective - Date Date of Physician Progress Note: 11/11/18 - Subjective Subjective Comment: 11/10/18 Pt appears well, at bedside, both updated with POC and new labs results. Pt and have "googled" sepsis and have questions and concerns about the severity of her current condition based on preliminary results of gram neg rods in BC x2 and elevated procalcitonin 6.68. POC for fluids, increased levaquin dosing to 750mg qdand continue Rocephin 1gm q12. Questions answered, pt and deny any further questions at this time. 11/11/18 Pt reports normal appetite, making urine and denies any issues. POC d/c tomorrow with 1 week ABC PCP Objective - Vital Signs Vital Signs: Vital Signs - Last 24 Hrs Temp Pulse Pulse Resp BP Pulse Ox 11/11/18 09:00 98.1 F 84 18 128/75 93 L 11/11/18 05:00 100.4 F H 89 22 148/89 95 11/11/18 00:00 99.7 F H 87 20 113/59 95 11/10/18 21:00 99.8 F H 89 20 126/73 95 11/10/18 20:45 80 18 11/10/18 17:15 100.0 F H 80 18 149/91 96 11/10/18 13:44 72 16 96 11/10/18 12:00 73 16 85/44 95 - General General Appearance: Alert, Oriented x3, Cooperative, No acute distress Limitations: No limitations - Head Head exam: Atraumatic, Normocephalic, Normal inspection Head exam detail: negative: Abrasion, Contusion, Barcenas's sign, General tenderness, Hematoma, Laceration - Eye Eye exam: Normal appearance. negative: Conjunctival injection, Periorbital swelling, Periorbital tenderness, Scleral icterus - ENT Ear exam: negative: Auricular hematoma, Auricular trauma Nasal Exam: negative: Active bleeding, Discharge, Dried blood, Foreign body Mouth exam: negative: Drooling, Laceration, Muffled voice, Tongue elevation - Neck Neck exam: Normal inspection. negative: Meningismus, Tenderness - Respiratory Respiratory exam: Normal lung sounds bilaterally. negative: Rales, Respiratory distress, Rhonchi, Stridor - Cardiovascular Cardiovascular Exam: Regular rate, Normal rhythm, Normal heart sounds, Other ( incision left chest, no drainage, minimal bruising, no redness or warmth ) Peripheral Pulses: 2+: Radial (R), Radial (L), Dorsalis Pedis (R), Dorsalis Pedis (L) - GI/Abdominal GI/Abdominal exam: Soft, Tenderness (Mild TTP supra-pubic region, no rebound, guarding, or peritoneal signs on examination). negative: Rebound, Rigid - Rectal Rectal exam: Deferred - exam: Deferred - Extremities Extremities exam: Normal inspection. negative: Pedal edema, Tenderness - Back Back exam: Denies: CVA tenderness (R), CVA tenderness (L) - Neurological Neurological exam: Alert, Normal gait, Oriented X3 - Psychiatric Psychiatric exam: Normal affect, Normal mood - Skin Skin exam: Normal color. negative: Abrasion Type of lesion: negative: abrasion Assessment and Plan - Assessment and Plan (1) Sepsis Current Visit: Yes Status: Acute Qualifiers: Sepsis type: Escherichia coli Qualified Code(s): A41.51 - Sepsis due to Escherichia coli [E. coli] Base Code: A41.9 - SEPSIS, UNSPECIFIED ORGANISM Comment: 11/09/18 -lactic acid 2.4 but repeat 1.3 after 2 L NS -pt does not req supplemental O2, VSS, a&ox4 -CBC and RFT stable -continue IV ABX and IVF, repeat labs in the am 11/10/18 -Procalcitonin 6.68 and preliminary BC results gram neg rods, levaquin increased to 750mg IVPB, continue Rocephin 1gm q12 -Continue IVF -pt and updated on POC to stay a few days r/t sepsis severity -pt appears well, skin PWD, no distress, eating with out difficulty, denies N/V/ D or abd pain 11/11/18 -changed IVF to NS 20mEq K, labs reviewed, K 3.7 -Cont IVF 1 more day -pt reports appetite has returned to normal, no complaints at this time -making urine with no issues, ambulating with no issues -Plan for D/C tomorrow with Levaquin 750mg PO and Keflex 500mg TID x 7 days (2) Pyelonephritis Current Visit: Yes Status: Acute Base Code: N12 - TUBULO-INTERSTITIAL NEPHRITIS, NOT SPCF ACUTE OR CHRONIC Comment: 11/09/18 -IV ABX -BUN 21->13 -Cr 0.9->0.7 repeat labs in AM -pt making urine, tolerating PO intake with no difficulty 11/10/18 -Levaquin increased to 750mg IVPB qd, continue rocephin 1gm q12 -continue IVF -pt has adequate intake and output, ambulates to restroom with no diffuculty 11/11/18 -RFTs wnl, CBC wnl -continue to encourage Po intake and continue IVF 1 more day -repeat labs in AM but plan on D/C tomorrow -Confirmed POC d/c ABX regimen with Pat Pharmacist and Dr Fry based on preliminary BC results and labs (3) Postsurgical cardiac pacemaker in situ Current Visit: Yes Status: Acute Base Code: Z95.0 - PRESENCE OF CARDIAC PACEMAKER Comment: 11/09/18 -surgical site has no s/s infectin -[facility] contacted with pt current condition -wound CYNTHIA, no drainage noted, incision well approximated 11/10/18 -surgical site remains same 11/11/18 -surgical site remains same (4) Full code status Current Visit: Yes Status: Acute Base Code: Z78.9 - OTHER SPECIFIED HEALTH STATUS Comment: 11/11/18 -full code (5) DVT prophylaxis Current Visit: Yes Status: Acute Base Code: [id number] - Comment: 11/11/18 -lovenox 40mg SQ QD Results - Labs Result Diagrams: 11/11/18 06:14 11/11/18 06:14 Labs Last 24 Hours: Laboratory Results - last 24 hr 11/11/18 11/11/18 06:14 06:14 WBC 7.6 RBC 3.59 L Hgb 11.0 L Hct 33.6 L MCV 93.6 MCH 30.6 MCHC 32.7 RDW 13.7 Plt Count 103 L MPV 12.1 H Neutrophils % 57.0 Band Neutrophils % 5.0 Eosinophils % Not Reportable Basophils % Not Reportable Lymphocytes 21.0 Monocytes 12.0 H Platelet Estimate Normal RBC Morphology Normal Eosinophil Count 5.0 Sodium 140 Potassium 3.7 Chloride 108 H Carbon Dioxide 18.0 L Anion Gap 14.0 BUN 10 Creatinine 0.7 Estimated GFR > 60 Random Glucose 99 Calcium 9.1 DVT/PE Assessment - Risk for VTE Risk for VTE: No Risk Level: Moderate Risk Assessment Date: 11/11/18 Risk Assessment Time: 09:59 VTE Orders Placed or Will Be Placed: Yes - Active Medicaitons Current Medications: Current Medications Acetaminophen (Tylenol 500mg Tab) 1,000 mg PO Q6H PRN PRN Reason: PAIN - MILD(1-4)/FEVER Last Admin: 11/11/18 05:23 Dose: 1,000 mg Aspirin (Ecotrin (Ec)) 81 mg PO QHS [facility] Last Admin: 11/10/18 21:53 Dose: 81 mg Atorvastatin Calcium (Lipitor) 20 mg PO QHS [facility] Last Admin: 11/10/18 21:53 Dose: 20 mg Calcium Carbonate/Glycine (Tums) 500 mg PO Q4H PRN PRN Reason: heartburn Last Admin: 11/10/18 21:53 Dose: 500 mg Carvedilol (Coreg) 6.25 mg PO BID [facility] Last Admin: 11/10/18 21:54 Dose: Not Given Cholestyramine Resin (Prevalite) 1 pkt PO BIDWM [facility] Last Admin: 11/11/18 09:01 Dose: 1 pkt Citalopram Hydrobromide (Celexa) 20 mg PO DAILY [facility] Last Admin: 11/10/18 10:09 Dose: 20 mg Docusate Sodium (Colace) 100 mg PO BID [facility] Last Admin: 11/10/18 21:53 Dose: 100 mg Enoxaparin Sodium (Lovenox) 40 mg SQ DAILY [facility] Fluticasone Propionate (Flonase) 1 spray NA BID PRN PRN Reason: ALLERGIES Gabapentin (Neurontin) 300 mg PO TID [facility] Last Admin: 11/10/18 21:53 Dose: 300 mg CEFTRIAXONE 1GM/50ML BAG (Ceftriaxone 1 Gm-D5w Bag) 1 gm in 50 mls @ 100 mls/ hr IVPB Q12H [facility] Last Infusion: 11/11/18 00:04 Dose: Infused Levofloxacin/Dextrose (Levaquin 750mg Ivpb) 750 mg in 150 mls @ 125 mls/hr IVPB Q24H [facility] Stop: 11/15/18 10:01 Last Infusion: 11/10/18 12:21 Dose: Infused Potassium Chloride/Sodium Chloride ( Potassium Chl 20meq/) 20 meq in 1,000 mls @ 100 mls/hr IV NOW ONE Stop: 11/11/18 19:19 Meloxicam (Mobic) 15 mg PO DAILY [facility] Last Admin: 11/10/18 10:09 Dose: 15 mg Metformin HCl (Glucophage Ir) 500 mg PO DAILY [facility] Last Admin: 11/10/18 10:09 Dose: 500 mg Oxybutynin Chloride (Ditropan) 5 mg PO TID [facility] Last Admin: 11/10/18 21:53 Dose: 5 mg Polyethylene Glycol (Miralax) 17 gm PO DAILY [facility] Last Admin: 11/10/18 14:44 Dose: 17 gm Ramipril (Altace) 5 mg PO DAILY [facility] Last Admin: 11/10/18 10:09 Dose: 5 mg AMI Plan - Labs Result Diagrams: 11/11/18 06:14 11/11/18 06:14
[2018-11-11] MEDS: GABAPENTIN 300 MG CAPSULE PO SCH ×3 (10:35→21:29)
[2018-11-11] MEDS: CITALOPRAM 20 MG TABLET PO SCH (10:35)
[2018-11-11] MEDS: METFORMIN 500 MG TABLET PO SCH (10:35)
[2018-11-11] MEDS: CARVEDILOL 3.125 MG TABLET PO SCH ×2 (10:35→21:30)
[2018-11-11] MEDS: DOCUSATE SODIUM 100 MG CAPSULE PO SCH ×2 (10:36→21:30)
[2018-11-11] MEDS: OXYBUTYNIN CHLORIDE 5MG TABLET PO SCH ×3 (10:36→21:30)
[2018-11-11] MEDS: ENOXAPARIN 40 MG/0.4 ML SYR SQ SCH (10:36)
[2018-11-11] MEDS: MELOXICAM 7.5 MG TABLET PO SCH (10:36)
[2018-11-11] MEDS: RAMIPRIL 2.5 MG CAPSULE PO SCH (10:36)
[2018-11-11] MEDS: LEVOFLOXACIN/D5W 750 MG/150 ML BAG IVPB SCH (10:37)
[2018-11-11] MEDS: POLYETHYLENE GLY 17 GM PACKET PO SCH (10:38)
[2018-11-11] MEDS: CEFTRIAXONE 1GM/50ML BAG 1 GM/50 ML BAG IVPB SCH ×2 (12:47→23:32)
[2018-11-11] MEDS: ATORVASTATIN 20 MG TABLET PO SCH (21:30)
[2018-11-11] MEDS: ASPIRIN 81 MG TABEC PO SCH (21:30)
[2018-11-12 06:19] LABS: HEMATOCRIT 34.2 % (35.0-47.0); HEMOGLOBIN 11.6 gm/dl (11.6-16.0); MEAN CELL VOLUME 92.7 fl (81-97); MEAN CORPUSCULAR HEMOGLOBIN 31.4 pg (27-33); MEAN CORPUSCULAR HGB CONC 33.9 g/dl (32-36); MEAN PLATELET VOLUME 11.8 fl (7.4-10.4); PLATELET COUNT 131 K/uL (130-400); RED BLOOD COUNT 3.69 M/uL (3.80-5.40); RED CELL DISTRIBUTION WIDTH 13.9 % (11.5-14.5); WHITE BLOOD COUNT W/O DIFF 8.4 K/uL (4.2-12.2)
[2018-11-12 06:35] LABS: BLOOD UREA NITROGEN 10 mg/dL (8-23); CREATININE 0.6 mg/dL (0.5-0.9); EST GLOMERULAR FILTRATION RATE > 60 mL/min; GLUCOSE,RANDOM 106 mg/dL (74-109)
[2018-11-12 06:42] LABS: ANISOCYTOSIS 1+; PLATELET ESTIMATE NORMAL (NORMAL)
[2018-11-12] MEDS: POLYETHYLENE GLY 17 GM PACKET PO SCH (09:00)
[2018-11-12] MEDS: CHOLESTYRAMINE/ASPARTANE PKT PO SCH (09:00)
[2018-11-12] MEDS: MELOXICAM 7.5 MG TABLET PO SCH (09:02)
[2018-11-12] MEDS: CARVEDILOL 3.125 MG TABLET PO SCH (09:02)
[2018-11-12] MEDS: METFORMIN 500 MG TABLET PO SCH (09:02)
[2018-11-12] MEDS: GABAPENTIN 300 MG CAPSULE PO SCH (09:02)
[2018-11-12] MEDS: RAMIPRIL 2.5 MG CAPSULE PO SCH (09:02)
[2018-11-12] MEDS: ENOXAPARIN 40 MG/0.4 ML SYR SQ SCH (09:03)
[2018-11-12] MEDS: CITALOPRAM 20 MG TABLET PO SCH (09:03)
[2018-11-12] MEDS: DOCUSATE SODIUM 100 MG CAPSULE PO SCH (09:03)
[2018-11-12] MEDS: LEVOFLOXACIN/D5W 750 MG/150 ML BAG IVPB SCH (09:03)
[2018-11-12] MEDS: OXYBUTYNIN CHLORIDE 5MG TABLET PO SCH (09:03)
--- NOTE | 2018-11-12 11:33 | Discharge Summary ---
Providers Discharge Summary Date: 11/12/18 Date of admission: 11/09/18 01:59 Expected Date of Discharge: 11/12/18 Attending physician: PADMINI FRY Primary care physician: JOHANA HERNANDEZ D.O. Physical Exam - Vital Signs Vital Signs: Vital Signs - Last 24 Hrs Temp Pulse Resp BP Pulse Ox 11/12/18 09:00 98.9 F 86 18 115/76 96 11/12/18 05:00 98.9 F 80 18 131/76 96 11/12/18 01:00 98.5 F 89 18 129/77 97 11/11/18 21:00 98.5 F 84 18 119/70 96 11/11/18 17:00 97.1 F L 80 18 125/70 96 11/11/18 13:00 98.3 F 76 18 120/78 95 - General General Appearance: Alert, Oriented x3, Cooperative, No acute distress Limitations: No limitations - Head Head exam: Atraumatic, Normocephalic, Normal inspection Head exam detail: negative: Abrasion, Contusion, Barcenas's sign, General tenderness, Hematoma, Laceration - Eye Eye exam: Normal appearance. negative: Conjunctival injection, Periorbital swelling, Periorbital tenderness, Scleral icterus - ENT Ear exam: negative: Auricular hematoma, Auricular trauma Nasal Exam: negative: Active bleeding, Discharge, Dried blood, Foreign body Mouth exam: negative: Drooling, Laceration, Muffled voice, Tongue elevation - Neck Neck exam: Normal inspection. negative: Meningismus, Tenderness - Respiratory Respiratory exam: Normal lung sounds bilaterally. negative: Rales, Respiratory distress, Rhonchi, Stridor - Cardiovascular Cardiovascular Exam: Regular rate, Normal rhythm, Normal heart sounds, Other ( incision left chest, no drainage, minimal bruising, no redness or warmth ) Peripheral Pulses: 2+: Radial (R), Radial (L), Dorsalis Pedis (R), Dorsalis Pedis (L) - GI/Abdominal GI/Abdominal exam: Soft. negative: Rebound, Rigid - Rectal Rectal exam: Deferred - exam: Deferred - Extremities Extremities exam: Normal inspection. negative: Pedal edema, Tenderness - Back Back exam: Denies: CVA tenderness (R), CVA tenderness (L) - Neurological Neurological exam: Alert, Normal gait, Oriented X3 - Psychiatric Psychiatric exam: Normal affect, Normal mood - Skin Skin exam: Normal color. negative: Abrasion Type of lesion: negative: abrasion Hospitalization - Hospitalization Admission Diagnosis: Pyelpnephritis. Sepsis. Post-op pacemaker - Problem List/Discharge Diagnosis (1) Sepsis Current Visit: Yes Status: Acute Discharge Diagnosis: Sepsis type: Escherichia coli Qualified Code(s): A41.51 - Sepsis due to Escherichia coli [E. coli] Base Code: A41.9 - SEPSIS, UNSPECIFIED ORGANISM Comment: 11/09/18 -lactic acid 2.4 but repeat 1.3 after 2 L NS -pt does not req supplemental O2, VSS, a&ox4 -CBC and RFT stable -continue IV ABX and IVF, repeat labs in the am 11/10/18 -Procalcitonin 6.68 and preliminary BC results gram neg rods, levaquin increased to 750mg IVPB, continue Rocephin 1gm q12 -Continue IVF -pt and updated on POC to stay a few days r/t sepsis severity -pt appears well, skin PWD, no distress, eating with out difficulty, denies N/V/ D or abd pain 11/11/18 -changed IVF to NS 20mEq K, labs reviewed, K 3.7 -Cont IVF 1 more day -pt reports appetite has returned to normal, no complaints at this time -making urine with no issues, ambulating with no issues -Plan for D/C tomorrow with Levaquin 750mg PO and Keflex 500mg TID x 7 days 11/12/18 -pt returned to normal appetite, no fever/chills, no pain -d/c with 7 more days ABX and f/u PCP -labs reviewed wnl (2) Pyelonephritis Current Visit: Yes Status: Acute Base Code: N12 - TUBULO-INTERSTITIAL NEPHRITIS, NOT SPCF ACUTE OR CHRONIC Comment: 11/09/18 -IV ABX -BUN 21->13 -Cr 0.9->0.7 repeat labs in AM -pt making urine, tolerating PO intake with no difficulty 11/10/18 -Levaquin increased to 750mg IVPB qd, continue rocephin 1gm q12 -continue IVF -pt has adequate intake and output, ambulates to restroom with no diffuculty 11/11/18 -RFTs wnl, CBC wnl -continue to encourage Po intake and continue IVF 1 more day -repeat labs in AM but plan on D/C tomorrow -Confirmed POC d/c ABX regimen with Pat Pharmacist and Dr Fry based on preliminary BC results and labs 11/12/18 -RFTs normal, pt denies pain -d/c with 7 days ABX PO and f/u PCP (3) Postsurgical cardiac pacemaker in situ Current Visit: Yes Status: Acute Base Code: Z95.0 - PRESENCE OF CARDIAC PACEMAKER Comment: 11/09/18 -surgical site has no s/s infectin -[facility] contacted with pt current condition -wound KNAPSACK SPRAYER, no drainage noted, incision well approximated 11/10/18 -surgical site remains same 11/11/18 -surgical site remains same 11/12/18 -f/u with [facility] as recommended (4) Full code status Current Visit: Yes Status: Acute Base Code: Z78.9 - OTHER SPECIFIED HEALTH STATUS Comment: 11/11/18 -full code (5) DVT prophylaxis Current Visit: Yes Status: Acute Base Code: [id number] - Comment: 11/11/18 -lovenox 40mg SQ QD - Hospitalization Course Hospital Course: 63yo F c/o 1+ week of foul smelling urine, 3-4 days of lower abd and lower back pain. Pt reports freq UTI but usually has burning with urination but that did not happen this time. Pt recently had 3rd PPM placed by 8 days ago by [facility]. Service confirms that pt did NOT have benoit placed for procedure. PMG HTN, heart block (WPW), former smoker, DM, and hyperlipidemia. 11/08/18 Pt 102F, 104, 129/75, RR 24, 97%RA WBC 9.1, Hgb 13.6, Hct 40.2, Plt 107 Na 136, K 3.9, Anion gap 13, BUN 21, Cr 0.9, GFR >60, glucose 132 lactic acid 2.4, repeat 1.3 after 2L. UA positive mod leuk CXR no acute process Given 2 L NS bolus and levaquin 250mg IVPB, and Rocpehin 1gm Admit for urosepsis 11/09/18 Pt resting comfortably in bed, no acute distress. Reports freq urination with less abd pain but still no burning. Pt VSS, a&ox4, moving all extremities, warm and dry. Lungs CTA, BS x4, lower abd TTP. Heart sound RR, pacemacker incision left upper chest CYNTHIA. Incision is well approximated, no erythema or warmth noted. No drainage noted. Pt continues to lave no overhead left arm movement. POC repeat labs, continue fluids, IV abx and diet as tolerated. PCP [facility] Procedures: Imaging and X-Rays 11/08/18 23:22 CHEST 2 VIEWS [RAD] Stat Cardiology Procedures 11/09/18 02:00 Food Manager .Continuous Abnormal Labs: Abnormal Lab Results 11/08/18 11/08/18 11/08/18 Range/Units 23:20 23:20 23:45 RBC (3.80-5.40) M/uL Hgb (11.6-16.0) gm/dl Hct (35.0-47.0) % Plt Count 107 L (130-400) K/uL MPV 11.9 H (7.4-10.4) fl Neutrophils % 81.0 H (47-80) % Lymphocytes % (16-45) % Monocytes % (0-9) % Lymphocytes 12.0 L (16-45) % Monocytes (0-9) % Sodium 134 L (136-145) mmol/L Chloride (98-107) mmol/L Carbon Dioxide 16.0 L (22-29) mmol/L Anion Gap 17.0 H (7-16) BUN 24 H (8-23) mg/dL Creatinine 1.0 H (0.5-0.9) mg/dL Random Glucose 144 H (74-109) mg/dL Lactic Acid 2.4 H (0.5-2.2) mmol/L Calcium (8.8-10.2) mg/dL ALT 35 H (<33) U/L Urine Protein (NEGATIVE) Urine Blood (NEGATIVE) Ur Leukocyte Esterase (NEGATIVE) 11/09/18 11/09/18 11/10/18 Range/Units 00:37 06:40 07:00 RBC 3.57 L (3.80-5.40) M/uL Hgb 11.2 L (11.6-16.0) gm/dl Hct 33.5 L (35.0-47.0) % Plt Count 93 L (130-400) K/uL MPV 11.9 H (7.4-10.4) fl Neutrophils % (47-80) % Lymphocytes % 15.6 L (16-45) % Monocytes % 13.2 H (0-9) % Lymphocytes (16-45) % Monocytes (0-9) % Sodium (136-145) mmol/L Chloride (98-107) mmol/L Carbon Dioxide 17.0 L (22-29) mmol/L Anion Gap (7-16) BUN (8-23) mg/dL Creatinine (0.5-0.9) mg/dL Random Glucose 132 H (74-109) mg/dL Lactic Acid (0.5-2.2) mmol/L Calcium 8.3 L (8.8-10.2) mg/dL ALT (<33) U/L Urine Protein Trace H (NEGATIVE) Urine Blood Small H (NEGATIVE) Ur Leukocyte Esterase Moderate H (NEGATIVE) 11/10/18 11/11/18 11/11/18 Range/Units 07:00 06:14 06:14 RBC 3.59 L (3.80-5.40) M/uL Hgb 11.0 L (11.6-16.0) gm/dl Hct 33.6 L (35.0-47.0) % Plt Count 103 L (130-400) K/uL MPV 12.1 H (7.4-10.4) fl Neutrophils % (47-80) % Lymphocytes % (16-45) % Monocytes % (0-9) % Lymphocytes (16-45) % Monocytes 12.0 H (0-9) % Sodium (136-145) mmol/L Chloride 110 H 108 H (98-107) mmol/L Carbon Dioxide 19.0 L 18.0 L (22-29) mmol/L Anion Gap (7-16) BUN (8-23) mg/dL Creatinine (0.5-0.9) mg/dL Random Glucose 113 H (74-109) mg/dL Lactic Acid (0.5-2.2) mmol/L Calcium (8.8-10.2) mg/dL ALT (<33) U/L Urine Protein (NEGATIVE) Urine Blood (NEGATIVE) Ur Leukocyte Esterase (NEGATIVE) 11/12/18 11/12/18 Range/Units 06:05 06:05 RBC 3.69 L (3.80-5.40) M/uL Hgb (11.6-16.0) gm/dl Hct 34.2 L (35.0-47.0) % Plt Count (130-400) K/uL MPV 11.8 H (7.4-10.4) fl Neutrophils % (47-80) % Lymphocytes % (16-45) % Monocytes % (0-9) % Lymphocytes (16-45) % Monocytes (0-9) % Sodium (136-145) mmol/L Chloride (98-107) mmol/L Carbon Dioxide 20.0 L (22-29) mmol/L Anion Gap (7-16) BUN (8-23) mg/dL Creatinine (0.5-0.9) mg/dL Random Glucose (74-109) mg/dL Lactic Acid (0.5-2.2) mmol/L Calcium (8.8-10.2) mg/dL ALT (<33) U/L Urine Protein (NEGATIVE) Urine Blood (NEGATIVE) Ur Leukocyte Esterase (NEGATIVE) Condition at Discharge: (2) Stable Discharge Medications - Discharge Medications Home Medications: Ambulatory Orders Meloxicam 15 mg PO DAILY 03/16/14 [Last Taken 11/09/18] Tatamy-3 Acid Ethyl Esters 1 tab PO DAILY 03/16/14 [Last Taken 11/09/18] Ramipril 5 mg PO DAILY 03/16/14 [Last Taken 11/09/18] Atorvastatin Calcium [Lipitor] 20 mg PO DAILY 02/27/18 [Last Taken 11/08/18] Cholestyramine (with Sugar) [Questran Powder] 378 gm PO ASDIR 02/27/18 [Last Taken 11/09/18] Oxybutynin Chloride [Ditropan Xl] 15 mg PO ASDIR 02/27/18 [Last Taken 11/09/18] Aspirin [Aspir-Low] 1 tab PO DAILY 11/09/18 [Last Taken 11/09/18] Carvedilol [Coreg] 6.25 mg PO BID 11/09/18 [Last Taken 11/09/18] Citalopram Hydrobromide [Citalopram HBr] 20 mg PO DAILY 11/09/18 [Last Taken ] Docusate Sodium [Dok] 100 mg PO DAILY 11/09/18 [Last Taken 11/09/18] Fluticasone Furoate [Arnuity Ellipta] 50 mcg IH ASDIR PRN 11/09/18 [Last Taken Unknown] Gabapentin 300 mg PO TID 11/09/18 [Last Taken 11/09/18] Metformin HCl [Metformin HCl ER] 500 mg PO DAILY 11/09/18 [Last Taken 11/09/18] Omeprazole 20 mg PO DAILY 11/09/18 [Last Taken 11/09/18] Acetaminophen [Tylenol 500Mg Tab] 1,000 mg PO Q6H PRN tablet 11/12/18 [Last Taken Unknown] Aspirin Enteric-Coated [Ecotrin (EC)] 81 mg PO QHS tabec 11/12/18 [Last Taken Unknown] Calcium Carbonate [Tums] 500 mg PO Q4H PRN tab.chew 11/12/18 [Last Taken Unknown] Carvedilol [Coreg] 6.25 mg PO BID tablet 11/12/18 [Last Taken Unknown] Cephalexin [Keflex] 500 mg PO TID #21 cap 11/12/18 [Last Taken Unknown] Cholestyramine/Aspartame [Prevalite] 1 pkt PO BIDWM pkt 11/12/18 [Last Taken Unknown] Citalopram Hydrobromide [Celexa] 20 mg PO DAILY tablet 11/12/18 [Last Taken Unknown] Docusate Sodium [Colace] 100 mg PO BID cap 11/12/18 [Last Taken Unknown] Fluticasone Propionate [Flonase] 1 spray NA BID PRN btl 11/12/18 [Last Taken Unknown] Gabapentin [Neurontin] 300 mg PO TID capsule 11/12/18 [Last Taken Unknown] Levofloxacin [Levaquin] 750 mg PO DAILY #7 tablet 11/12/18 [Last Taken Unknown] Meloxicam [Mobic] 15 mg PO DAILY tablet 11/12/18 [Last Taken Unknown] Metformin HCl [Glucophage Ir] 500 mg PO DAILY tablet 11/12/18 [Last Taken Unknown] Oxybutynin Chloride [Ditropan] 5 mg PO TID tab 11/12/18 [Last Taken Unknown] Polyethylene Glycol 3350 [Miralax] 17 gm PO DAILY packet 11/12/18 [Last Taken Unknown] Ramipril [Altace] 5 mg PO DAILY capsule 11/12/18 [Last Taken Unknown] Discharge Plan - Discharge Instructions Activity at Discharge: As Per Physical Therapy Diet at Discharge: Advance to Usual Diet Additional Instructions: You had a significant urinary infection that required inpatient admission. You need to continue antibiotics for 7 more days, the blood cultures show these antibiotics should be effective. You have a follow up appt with your PCP, make sure to keep this appointment and they may repeat a urine sample at that time. Return to ER for any return of fever, chills, lower abdominal or back pain. Continue to take in plenty of fluids, monitor to make sure the urine does not have a foul odor or is cloudy. If it does, seek medical attention ADE. Continue to follow up with [facility] for your surgical recovery. Quality Measures - Quality Measures Quality Measures: Documentation of Current Medications in Medical Record, Screening for High Blood Pressure and F/U Documented - Current Medications Quality Measure: Measure #130: Documentation of Current Medications Documentation of Current Medications: <Current Medications Documented/Reviewed> [[id number]] - Blood Pressure Screening Quality Measure: Screening for High Blood Pressure and Follow-Up Documented Does Patient Have Any of the Following: Active Dx of HTN Blood Pressure Classification: Pre-Hypertensive BP Reading Systolic Measurement: 129 Diastolic Measurement: 75 Screening for High Blood Pressure: Patient Exclusion, Hx of HTN [G9744] - Elder Abuse Suspicion Index EASI Reference Information: Sasha MCCAULEY, Alejandra C, Jay D, Ron Cruz.Development and validation of a tool to assist physicians identification of elder abuse: The Elder Abuse Suspicion Index (EASI ). Journal of Elder Abuse and Neglect, 2008; 20 (3): 276-300.
[2018-11-12] MEDS: CEFTRIAXONE 1GM/50ML BAG 1 GM/50 ML BAG IVPB SCH (11:54)
== END 2018-11-12 13:00 | disposition home or self-care (01) | DRG 872 ==
LOC: ER 23:00 → OBSVTOIN 11-09 01:59 → INTOOBSV 11-09 01:59 → MEDSURG 11-09 01:59
PROVIDERS: ADMIT Internal Medicine; ATTEND Internal Medicine
DX: A41.51 Sepsis due to Escherichia coli [E. coli] (principal); N12 Tubulo-interstitial nephritis, not specified as acute or chronic; Z95.0 Presence of cardiac pacemaker; I10 Essential (primary) hypertension; E11.9 Type 2 diabetes mellitus without complications; E78.5 Hyperlipidemia, unspecified; Z87.891 Personal history of nicotine dependence
CPT/HCPCS: 71046; 80048; 80053; 81001; 83605; 84145; 85025; 85027; 94760; 96365; 96366; 96368; 99223; 99232; 99239; 99285; J0696; J1650; J1956; J7030